=== PATIENT | male | born 1940 | race Caucasian/White ===

== ENCOUNTER → 2016-08-19 | Outpatient (CLI) | payer OTHER, BC ==
[~2016-08-19] VITALS: Ht 152.4 cm; Wt 98.0 kg
[~2016-08-19] MED LIST: ASPIRIN325 M1 PO; AVODART0.5 MG PO; Bactrim,Septra DS 80 PO; CARDIZEM CD120 MG PO; CARDIZEM SR120 MG PO; CARTIA XT120 MG PO; CEFDINIR300 MG PO; CELEBREX200 MG PO; COLACE100 MG PO; COUMADIN1 MG PO; COUMADIN4 MG PO; Cardizem CD,Cartia X PO; Coumadin,Jantoven PO; DIGOXIN250 MCG PO; ECOTRIN325 MG PO; Ecotrin PO; GLUCOPHAGE1000 MG PO; Glucophage PO; HYDROCHLOROTHIA25 MG PO; HYDRODIURIL,ORE25 MG PO; Hydrodiuril,Oretic,E PO; LOPRESSOR25 MG PO; MAXAIR AUTOHALE14 GM IH; METFORMIN HCL1000 MG PO; NASONEX17 GM BOTH NARES; NIASPAN,SLO-NI500 MG PO; NIASPAN500 MG PO; Niaspan,Slo-Niacin PO; PERCOCET 5/31 TABLET PO; PRAVACHOL80 MG PO; PRAVASTATIN SOD40 MG PO; PULMICORT FLE180 MCG IH; PULMICORT200 MCG IH; Pravachol PO; Pulmicort; Pulmicort 180 microg IH; RANITIDINE HCL150 MG PO; SENOKOT S,PE1 TABLET PO; TOPROL XL50 MG PO; TRAMADOL HCL50 MG PO; ULTRACET1 TABLET PO; ULTRAM50 MG PO; ULTRAVATE 0.05%15 GM TP; ULTRAVATE15 G1 TP; UROXATRAL10 MG PO; Ultram PO; Uroxatral PO; VALIUM5 MG PO; Vicodin,Lortab 5/500 PO; Vicodin,Norco 5/325 PO; WARFARIN SODIUM4 MG PO; ZANTAC150 MG PO; ZESTRIL,PRINIVI20 MG PO; ZETIA10 MG PO; Zantac PO; Zantac,Taladine PO
[2016-08-19 13:21] LABS: POINT-OF-CARE METER ID UU14174212
[2016-08-19 13:47] LABS: INTER. NORMALIZED RATIO 1.2; PTT 31.8 (25-32)
== END | disposition home or self-care (01) ==
LOC: AMB 12:29
PROVIDERS: Anesthesiology; Internal Medicine Gastroenterology
PROC: 0DJD8ZZ Inspection of Lower Intestinal Tract, Via Natural or Artificial Opening Endoscopic (ICD-10-PCS; principal; 2016-08-19)
DX: K64.8 Other hemorrhoids (principal); K57.30 Diverticulosis of large intestine without perforation or abscess without bleeding; I10 Essential (primary) hypertension; E11.9 Type 2 diabetes mellitus without complications; K21.9 Gastro-esophageal reflux disease without esophagitis; I48.2 Chronic atrial fibrillation; J44.9 Chronic obstructive pulmonary disease, unspecified; I25.10 Atherosclerotic heart disease of native coronary artery without angina pectoris; E78.01 Familial hypercholesterolemia; E66.01 Morbid (severe) obesity due to excess calories; Z68.36 Body mass index [BMI] 36.0-36.9, adult; G47.33 Obstructive sleep apnea (adult) (pediatric); Z87.891 Personal history of nicotine dependence
CPT/HCPCS: 82948; 85610; 85730; 93005

== ENCOUNTER 2017-02-10 04:52 | Emergency (ER) | payer OTHER, BC ==
[~2017-02-10] VITALS: Ht 167.6 cm; Wt 102.1 kg
[2017-02-10 11:06] LABS: HEMATOCRIT 47.8 % (38.0-50.0); HEMOGLOBIN 16.3 G/DL (12.5-16.6); MCH 28.7 PG (29.0-34.0); MCHC 34.1 G/DL (30.0-36.0); MCV 84.2 FL (86-99); PLATELET COUNT 220 K/uL (156-360); RBC DIS.WIDTH-CV 13.5 % (11.8-14.6); RBC DIS.WIDTH-SD 41.7 % (39-53); RED BLOOD COUNT 5.68 M/uL (4.00-5.50); WHITE BLOOD COUNT 10.8 K/uL (4.1-10.2)
[2017-02-10 11:20] LABS: INTER. NORMALIZED RATIO 2.3
[2017-02-10 11:21] LABS: ALBUMIN 4.1 g/dL (3.2-4.8); CHLORIDE 100 mEq/L (99-109); POTASSIUM 4.1 mEq/L (3.7-5.4); SODIUM 137 mEq/L (136-147)
[2017-02-10 11:23] LABS: GLUCOSE 135 mg/dL (70-99); TOTAL PROTEIN 7.9 g/dL (6.4-8.3)
[2017-02-10 11:25] LABS: TOTAL BILIRUBIN 0.6 mg/dL (0.0-1.0)
[2017-02-10 11:27] LABS: ALKALINE PHOSPHATASE 49 IU/L (3-129); CREATININE 1.3 mg/dL (0.6-1.3); GFR ESTIMATE (CALCULATED) 57 mL/min/ (58.99-99999)
[2017-02-10 11:28] LABS: UREA NITROGEN (BUN) 26 mg/dL (9-23)
[2017-02-10 11:29] LABS: AST (GOT) 19 IU/L (2-34)
[2017-02-10 11:30] LABS: ALT (GPT) 19 IU/L (3-49)
[2017-02-10] MEDS ORDERED: PERCOCET 5/31 TABLET PO (13:43)
[2017-02-10 13:54] VITALS: BP 135/78
== END 2017-02-10 14:00 | disposition home or self-care (01) ==
LOC: EME 04:52
PROVIDERS: Emergency Medicine
DX: S20.212A Contusion of left front wall of thorax, initial encounter (principal); W00.0XXA Fall on same level due to ice and snow, initial encounter; Y99.0 Civilian activity done for income or pay; E11.9 Type 2 diabetes mellitus without complications; Z79.84 Long term (current) use of oral hypoglycemic drugs; Z79.01 Long term (current) use of anticoagulants; E78.5 Hyperlipidemia, unspecified; Z96.652 Presence of left artificial knee joint; Z87.891 Personal history of nicotine dependence
CPT/HCPCS: 70450; 71046; 71260; 74177; 80053; 83605; 85027; 85610; 87040; 99281; 99284